=== PATIENT | female | born 1970 | race African-American/Black ===

== ENCOUNTER 2016-09-25 03:55 | Observation (INO) | payer OTHER ==
--- NOTE | ~2016-09-25 | CR72 ---
[facility] A Service of [facility] RADIOLOGY TEXT RESULTS PATIENT: BRIDGET BURGOS LOCATION: [facility] : 72 UNIT #: [id number] AGE: [address]: Rajan Jon MD SEX: F ORDER DR: [id number] [place], [place] [address] [id number] I MR#: [id number] Acc #: [id number] NAME: BRIDGET BURGOS : 1970 SEX: F STUDY DATE/TIME: 09/25/2016 4:23 UNIT: [facility] ROOM: [facility] STUDY DESCRIPTION: CR Chest Single View Portable Attending Physician: Rajan Jon Ordering Physician: Lucas Jon M.D. Primary Care Physician: Primary Care Physician No MEDICAL IMAGING REPORT This report is preliminary unless electronic signature is present EXAM Portable AP view of the chest COMPARISON PA and lateral chest dated March 21, 2016 INDICATIONS 46-year-old female with chest tightness and pain tonight, worse with movement. History of hypertension and diabetes. FINDINGS No evidence of pneumothorax or pleural effusion. Cardiomediastinal silhouette within normal limits. There is poor inspiratory effort and there is likely resultant bronchovascular crowding. Interstitial markings do not appear appreciably changed from February 2016. IMPRESSION No acute radiographic abnormality. Low lung volumes with bronchovascular crowding. Dictated by... Trey Wheatley M.D. THIS IS AN ELECTRONICALLY VERIFIED REPORT Trey Wheatley M.D. at 09/28/2016 9:32 PM TOMMY/blayne TD: 09/25/2016 10:03 JOB #: [id number] [facility] A Service of [facility] RADIOLOGY TEXT RESULTS PATIENT: BRIDGET BURGOS LOCATION: [facility] : 72 UNIT #: [id number] AGE: [address]: Rajan Jon MD SEX: F ORDER DR: MEDICAL IMAGING REPORT COPY
--- NOTE | ~2016-09-25 | HP ---
Unit #: [id number] #: [id number] Patient: BRIDGET BURGOS [id number] [facility]. [place], [place] [address] [id number] I MR#: [id number] NAME: BRIDGET BURGOS ROOM: 568 Age: 46 Sex: F Admission Date: 09/25/2016 : 1970 Attending Physician: Lucas Jon M.D. HISTORY AND PHYSICAL REASON FOR ADMISSION Chest pain. HISTORY OF PRESENT ILLNESS The patient is a 46-year-old female who presented to [facility] ED on September 25, 2016, at roughly 3 a.m., with complaints of chest pain. Patient states that she got home from work the evening prior at roughly 11 p.m. She has had a very stressful work environment recently and has been having some difficulties with her coworkers. The patient states that she went to bed and was awoken by chest tightness to the mid chest that radiated to her jaw, as well as her arm, and had some associated sweating, dizziness, and palpitations. Patient states that she has been having these symptoms off and on for about the last week. She did go to her PCP who increased her Zoloft, who felt that it was more anxiety related. However, patient states that the episode she had early this morning was worse than any other episode she had which is why she presented to the [facility] ED. Patient has a history of GERD, anxiety, depression, diabetes that was diagnosed in February of this past year, and hypertension that was diagnosed last week and currently not taking any meds. Patient states that she has had panic attacks before and is fairly familiar with how those feel, and she states that the pain she experienced last evening is not anything like any panic attack that she has ever had. She also describes a lot of sharp, shooting pains in her feet but denies any nausea, vomiting, or syncope, and no shortness of breath or worsening of chest pain with exertion or with walking. However, she does not worsening of chest pain with lifting or bending over to pick something up at work. Patient has never had a stress test, never had a cardiac cath, and never had sleep apnea workup. PAST MEDICAL HISTORY 1. Gastroesophageal reflux disease. 2. Anxiety and depression. 3. Diabetes diagnosed in February 2016. 4. Hypertension diagnosed last week but not currently on any medication. PAST SURGICAL HISTORY 1. Tubal. 2. section. SOCIAL HISTORY Patient has three children. The youngest one is age 21. 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 Patient has smoked one pack per day since 1998; however, she has cut back to where one pack will last her one to two days now. Patient states that she also uses marijuana occasionally, roughly one to two times per week. She denies any alcohol abuse or any other illicit drug use. It is of note that patient states that she recently lost her roughly February of last year where he was just found in their home, and patient has had a hard time in coping with that as well. Patient does states that she exercises regularly where she walks in [employer]. The last time that she did walk was approximately two weeks ago, but normally when she does this activity she does not have any shortness of breath or chest pain. FAMILY HISTORY Mom is living at age 65. She has CHF. Dad is living at age 62-63 with no known heart disease. Patient does have a family history positive for hypertension. ALLERGIES PENICILLIN. HOME MEDICATIONS 1. Hydroxyzine 2 caps p.o. every 6 hours as needed for anxiety. 2. Glucophage 500 mg p.o. daily. 3. Naproxen 500 mg p.o. twice daily. 4. Zantac 150 mg p.o. at bedtime. 5. Prilosec 40 mg p.o. daily. 6. Zoloft 200 mg p.o. daily. REVIEW OF SYSTEMS See History of Present Illness. PHYSICAL EXAMINATION GENERAL: This is a 46-year-old female who is alert, oriented x3, and in no apparent distress. VITAL SIGNS: Blood pressure 109/59, temperature 97.6, respirations 18, and pulse 67. HEART: S1 and S2. No S3 or S4. No clicks, no rubs, no murmurs. LUNGS: Clear. ABDOMEN: Obese. No masses, no tenderness. Positive bowel sounds. EXTREMITIES: No swelling. NEUROLOGICAL: No neuro deficits noted. DIAGNOSTIC STUDIES LABORATORY: Troponin of less than 0.05 and less than 0.05. White count is 10, hemoglobin 12, hematocrit 37.4, and platelets 261,000. Sodium 135, potassium 3.6, chloride 108, CO2 of 26, BUN 12, creatinine 0.7, and glucose 165. IMAGING: Chest x-ray shows pulmonary edema with low lung volumes. CARDIOLOGY: EKG shows normal sinus rhythm with no ischemic changes. IMPRESSION 1. Acute diastolic heart failure. 2. Possible coronary artery disease. 3. Rule out hypertensive heart disease. 4. Diabetes. 5. High blood pressure. Unit #: [id number] #: [id number] Patient: BRIDGET BURGOS 6. Hyperlipidemia. 7. Obesity. PLAN Will add lipid panel and A1c to the labs drawn from today. Will decrease patient's nitroglycerin paste dose to a half an inch twice a day. Will start patient on Coreg twice daily, as well as IV diuretics for diastolic heart failure and fluid overload. Will start patient on therapeutic Lovenox dose, as well as an aspirin, Lipitor, and lisinopril. Will start patient on fluid restriction of 2000 mL per day. Due to patient's new-onset diastolic heart failure, will plan for cardiac cath on Sunday. The cath was discussed with the patient, and patient is agreeable to proceed. Will check cardiac enzymes, as well as EKG in the morning. Further recommendations and workup pending cardiac cath results. Will also check 2D echo to evaluate LV function and any valvular abnormality. Dictated by Montse Zapata APRN for Albaro Rivera/judith TD: 09/25/2016 22:16 JOB #: [id number] HISTORY AND PHYSICAL X X HISTORY AND PHYSICAL
--- NOTE | ~2016-09-25 | EKG ---
PATIENT: BRIDGET BURGOS UNIT #: [id number] Ventricular Rate: 71 BPM Atrial Rate: 71 BPM P-R Interval: 150 ms QRS Duration: 76 ms Q-T Interval: 428 ms QTC Calculation(Bezet): 465 ms P [place]: 29 degrees Calculated R [place]: 6 degrees Calculated T [place]: 13 degrees Diagnosis Line: Normal sinus rhythm Diagnosis Line: Minimal voltage criteria for LVH, may be normal Diagnosis Line: variant Diagnosis Line: Borderline ECG Diagnosis Line: When compared with ECG of 25-SEP-2016 03:35, Diagnosis Line: (unconfirmed) Diagnosis Line: No significant change was found Diagnosis Line: Confirmed by MARIAH CEDILLO MD ([id number]) on Diagnosis Line: 09/26/2016 12:10:18 PM INTERPRETING MD: CALVIN
--- NOTE | ~2016-09-25 | DS ---
Unit #: [id number] #: [id number] Patient: BRIDGET BURGOS [id number] [place], [place] [address] [id number] I MR#: [id number] NAME: BRIDGET BURGOS ROOM: 568 Age: 46 Sex: F Admission Date: 09/25/2016 : 1970 Discharge Date: 09/27/2016 Attending Physician: Lucas Jon M.D. Primary Care Physician: No Primary Care Physician DISCHARGE SUMMARY DISCHARGE DIAGNOSES 1. Acute diastolic heart failure. 2. Status post cardiac catheterization 09/27/[address] Durán at [facility] that revealed angiographically normal coronaries. Ejection fraction of 60% with no segmental wall hypokinesis. 3. Two-dimensional echocardiogram 09/25/2016 shows an ejection fraction equal to 60% with mild concentric left ventricular hypertrophy. Mildly dilated left and right atrium. Mildly dilated right ventricle. Mild mitral regurgitation and mild tricuspid regurgitation. Right ventricular systolic pressure 27 mmHg. 4. Hypertensive heart disease. 5. Hyperlipidemia. 6. Diabetes mellitus type 2. 7. Obesity. DISCHARGE MEDICATIONS 1. Ranitidine 150 mg at nighttime. 2. Aspirin 81 mg daily. 3. Naproxen 500 mg b.i.d. 4. Prilosec 40 mg daily. 5. Acetaminophen 650 mg q.6 h. p.r.n. 6. Zoloft 200 mg daily. 7. Glucophage 500 mg daily. 8. Hydroxyzine 2 caps q.6 h. p.r.n. 9. Carvedilol 3.125 mg b.i.d. 10. Furosemide 40 mg daily. 11. Lipitor 20 mg at nighttime. 12. Lisinopril 10 mg at nighttime. HOSPITAL COURSE This is a 46-year-old female who presented to the emergency room for evaluation of chest pain that radiated to her mid chest and jaw and to her arm. She had associated dizziness, palpitations and diaphoresis. She was ruled out for an acute myocardial infarction with negative cardiac enzymes and troponin. Two-dimensional echocardiogram was obtained, which found the patient to have normal left ventricular systolic function. It was felt the patient was fluid overloaded and had acute onset of diastolic heart failure with preserved ejection fraction of 60% per echocardiogram. She was started on IV diuretics, placed on beta ava, MILLIE inhibitor and statin. Fluid restriction also ensued. Cardiac catheterization was recommended for the patient, to which she agreed. The following day her heart failure had improved. Her blood pressure was stable. She was taken to the cardiac catheterization, where Unit #: [id number] #: [id number] Patient: BRIDGET BURGOS she was found to have angiographically normal coronaries with normal left ventricular systolic function. Her right radial site was healing well without hematoma bruising. Blood pressure was stable. She was stable for discharge today. PHYSICAL EXAMINATION VITALS: Blood pressure 128/60, heart rate 60, temperature 98.4. CHEST: Clear to auscultation. HEART: S1 and S2. Regular rate and rhythm. ABDOMEN: Soft with bowel sounds present. EXTREMITIES: Without leg edema. DIAGNOSTIC DATA LABORATORY: Glucose 102, BUN 15, creatinine 0.8, sodium 139, potassium 4.1, cholesterol 248, triglycerides 127, LDL 146, HDL 69. White blood cell count 7.0, hemoglobin 11.1, hematocrit 35.4, platelets 256. CARDIOVASCULAR: Electrocardiogram normal sinus rhythm with a rate of 62 beats per minute with left ventricular hypertrophy. DISCHARGE INSTRUCTIONS 1. The patient will be discharged home today. 2. Follow up with Dr. Durán on 12/01/2016 at 2:30 p.m. 3. 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 No lifting over 5 pounds until 10/04/2016. 4. The patient has been discharged home on beta ava, MILLIE inhibitor, diuretic, aspirin and statin. Prescriptions have been written for all of the above. Dictated by... Umang Back A.P.R.N. for Albaro Rivera/conrado TD: 11/24/2016 09:04 JOB #: [id number] CC: [facility] DISCHARGE SUMMARY Page 1 of 1 X Umang Back APRN X DISCHARGE SUMMARY
--- NOTE | ~2016-09-25 | EKG ---
PATIENT: BRIDGET BURGOS UNIT #: [id number] Ventricular Rate: 62 BPM Atrial Rate: 62 BPM P-R Interval: 154 ms QRS Duration: 80 ms Q-T Interval: 446 ms QTC Calculation(Bezet): 452 ms P [place]: 39 degrees Calculated R [place]: 0 degrees Calculated T [place]: -2 degrees Diagnosis Line: Normal sinus rhythm Diagnosis Line: Moderate voltage criteria for LVH, may be normal Diagnosis Line: variant Diagnosis Line: Borderline ECG Diagnosis Line: When compared with ECG of 26-SEP-2016 08:56, Diagnosis Line: No significant change was found Diagnosis Line: Confirmed by ROBERTA KERR MD ([id number]) on 09/27/2016 Diagnosis Line: 7:37:50 PM INTERPRETING MD: CIRILO NICK
--- NOTE | ~2016-09-25 | EKG ---
PATIENT: BRIDGET BURGOS UNIT #: [id number] Ventricular Rate: 82 BPM Atrial Rate: 82 BPM P-R Interval: 160 ms QRS Duration: 80 ms Q-T Interval: 420 ms QTC Calculation(Bezet): 490 ms P [place]: 44 degrees Calculated R [place]: -6 degrees Calculated T [place]: 18 degrees Diagnosis Line: Normal sinus rhythm Diagnosis Line: Minimal voltage criteria for LVH, may be normal Diagnosis Line: variant Diagnosis Line: Prolonged QT Diagnosis Line: Abnormal ECG Diagnosis Line: When compared with ECG of 25-SEP-2016 03:32, Diagnosis Line: (unconfirmed) Diagnosis Line: No significant change was found Diagnosis Line: Confirmed by MARIAH CEDILLO MD ([id number]) on Diagnosis Line: 09/26/2016 11:44:50 AM INTERPRETING MD: CALVIN
[~2016-09-25 03:55] MED LIST: ASPIRINEC PO; GLUCOPHAGE500 M1 PO; HYDROXYZINE PAM25 MG PO; NAPROXEN500 M1 PO; PHENERGAN PO; PREVACID PO; PRILOSEC PO; RANITIDINE HCL150 M1 PO; SERTRALINE HCL100 MG PO; TOPAMAX PO
[2016-09-25 04:20] LABS: BASOPHIL# 0.1 X10e3 (0-0.3); BASOPHIL% 0.5 % (0-2.5); EOSINOPHIL# 0.1 X10e3 (0-0.7); EOSINOPHIL% 1.4 % (0.0-7.0); HEMATOCRIT 37.4 % (35.0-45.0); LYMPHOCYTE# 2.8 X10e3 (1.0-3.5); MEAN CELL VOLUME 78.6 FL (83-96); MEAN CORPUSCULAR HEMOGLOBIN 25.1 PG (28-34); MEAN PLATELET VOLUME 8.5 FL (6.5-11.5); MONOCYTE# 0.9 X10e3 (0-1.0); MONOCYTE% 8.6 % (3.0-12.0); NEUTROPHIL# 6.1 X10e3 (1.5-7.1); NEUTROPHIL% 61.5 % (40-75); PLATELET COUNT 261 X10e3 (140-420); RED BLOOD COUNT 4.76 X10e (3.90-5.30); RED CELL DISTRIBUTION WIDTH 17.3 % (11.0-15.5)
[2016-09-25 04:24] LABS: POC - CKMB 2.2 ng/mL (0.0-7.9); POC - TROPONIN <0.05 ng/mL (<=0.05)
[2016-09-25 04:25] LABS: DIFF IND NO
[2016-09-25 04:35] LABS: PARTIAL THROMBOPLASTIN TIME 26.4 SECONDS (23.5-31.3); PROTHROMBIN TIME (PATIENT) 10.9 SECONDS (9.6-11.5)
[2016-09-25 04:44] LABS: BLOOD UREA NITROGEN 12 mg/dL (9-23); BUN/CREATININE RATIO 17.14; CALCIUM SERUM 8.6 mg/dL (8.4-10.2); CARBON DIOXIDE 26 mmol/L (22-31); CHLORIDE 108 mmol/L (100-111); CREATININE SERUM 0.7 mg/dL (0.6-1.4); GLOM FILT RATE Estimated ABOVE60 mL/min (>60); GLUCOSE FASTING 165 mg/dL (70-110); POTASSIUM 3.6 mmol/L (3.5-5.1); SODIUM 135 mmol/L (135-145)
[2016-09-25 06:09] LABS: POC - CKMB 1.6 ng/mL (0.0-7.9); POC - TROPONIN <0.05 ng/mL (<=0.05)
[2016-09-25 13:45] LABS: MB 2.3 ng/ml
[2016-09-25 17:08] LABS: CHOLESTEROL 240 mg/dL (0-200); HDL CHOLESTEROL 69 mg/dL (35-95); LDL/HDL RATIO 2 RATIO (0-4); TRIGLYCERIDES 127 mg/dL (10-160)
[2016-09-25 17:09] LABS: LDL CHOLESTEROL 146 mg/dL (-130)
[2016-09-25 19:58] LABS: %MB 2.2 % (0.0-4.0); MB 2.3 ng/ml
[2016-09-26 09:48] LABS: %MB 2.1 % (0.0-4.0); MB 1.5 ng/ml
[2016-09-27 07:24] LABS: PROTHROMBIN TIME (PATIENT) 10.1 SECONDS (9.6-11.5)
[2016-09-27 07:38] LABS: BLOOD UREA NITROGEN 15 mg/dL (9-23); BUN/CREATININE RATIO 18.75; CALCIUM SERUM 8.6 mg/dL (8.4-10.2); CARBON DIOXIDE 26 mmol/L (22-31); CHLORIDE 107 mmol/L (100-111); CREATININE SERUM 0.8 mg/dL (0.6-1.4); GLOM FILT RATE Estimated ABOVE60 mL/min (>60); GLUCOSE FASTING 102 mg/dL (70-110); MAGNESIUM 2.1 mg/dL (1.6-3.0); POTASSIUM 4.1 mmol/L (3.5-5.1); SODIUM 139 mmol/L (135-145)
[2016-09-27 08:55] LABS: HEMATOCRIT 35.4 % (35.0-45.0); HEMOGLOBIN 11.1 gm/dL (12.0-16.0); MEAN CELL VOLUME 78.7 FL (83-96); MEAN CORPUSCULAR HEMOGLOBIN 24.6 PG (28-34); MEAN CORPUSCULAR HGB CONC 31.2 g/dL (30-36); MEAN PLATELET VOLUME 8.5 FL (6.5-11.5); RED BLOOD COUNT 4.5 X10e (3.90-5.30); RED CELL DISTRIBUTION WIDTH 17.5 % (11.0-15.5)
[2016-09-27] MEDS ORDERED: LASIX PO (14:15)
[2016-09-27] MEDS ORDERED: COREG3.125 MG PO (14:15)
[2016-09-27] MEDS ORDERED: LISINOPRIL10 MG PO (14:16)
[2016-09-27] MEDS ORDERED: LIPITOR20 MG PO (14:16)
[2016-09-27] MEDS ORDERED: BAYER CHEWABLE81 MG PO (14:39)
[2016-09-27] MEDS ORDERED: ACETAMINOPHEN650 M4 PO (14:39)
== END 2016-09-27 16:25 | disposition home or self-care (01) ==
LOC: CED 03:55 → CEDOF 06:25 → C5C 09:08
PROVIDERS: Emergency Medicine; Internal Medicine Cardiovascular Disease
DX: I11.0 Hypertensive heart disease with heart failure (principal); I50.31 Acute diastolic (congestive) heart failure; E11.9 Type 2 diabetes mellitus without complications; Z79.84 Long term (current) use of oral hypoglycemic drugs; E78.5 Hyperlipidemia, unspecified; E66.9 Obesity, unspecified; K21.9 Gastro-esophageal reflux disease without esophagitis; Z88.0 Allergy status to penicillin; Z82.49 Family history of ischemic heart disease and other diseases of the circulatory system
CPT/HCPCS: 36415; 71010; 80048; 80061; 82550; 82553; 82947; 83036; 83735; 84484; 85025; 85027; 85610; 85730; 93005; 93306; 96372; 99285; C1769; C1887; C1894; G0378; J1644; J1650; J1940; J2250; J3010

== ENCOUNTER 2016-12-26 13:52 | Emergency (ER) | payer OTHER ==
--- NOTE | ~2016-12-26 | EKG ---
PATIENT: BRIDGET BURGOS UNIT #: [id number] Ventricular Rate: 73 BPM Atrial Rate: 73 BPM P-R Interval: 156 ms QRS Duration: 86 ms Q-T Interval: 412 ms QTC Calculation(Bezet): 453 ms P [place]: 43 degrees Calculated R [place]: 3 degrees Calculated T [place]: 15 degrees Diagnosis Line: Normal sinus rhythm Diagnosis Line: Minimal voltage criteria for LVH, may be normal Diagnosis Line: variant Diagnosis Line: Borderline ECG Diagnosis Line: When compared with ECG of 27-SEP-2016 05:46, Diagnosis Line: No significant change was found Diagnosis Line: Confirmed by MAKI STORM MD ([id number]) on Diagnosis Line: 12/26/2016 3:51:49 PM INTERPRETING MD: DOTTY NICK
[~2016-12-26 13:52] MED LIST changes: +ACETAMINOPHEN650 M4 PO; +BAYER CHEWABLE81 MG PO; +COREG3.125 MG PO; +LASIX PO; +LIPITOR20 MG PO; +LISINOPRIL10 MG PO
[2016-12-26 14:15] LABS: BASOPHIL% 0.7 % (0-2.5); EOSINOPHIL# 0.1 X10e3 (0-0.7); EOSINOPHIL% 2.8 % (0.0-7.0); HEMOGLOBIN 12.2 gm/dL (12.0-16.0); LYMPHOCYTE# 1.8 X10e3 (1.0-3.5); LYMPHOCYTE% 33.8 % (17.0-45.0); MEAN CELL VOLUME 77.8 FL (83-96); MEAN CORPUSCULAR HEMOGLOBIN 24.2 PG (28-34); MEAN CORPUSCULAR HGB CONC 31.1 g/dL (30-36); MEAN PLATELET VOLUME 8.8 FL (6.5-11.5); MONOCYTE# 0.5 X10e3 (0-1.0); MONOCYTE% 9.9 % (3.0-12.0); NEUTROPHIL# 2.8 X10e3 (1.5-7.1); NEUTROPHIL% 52.8 % (40-75); PLATELET COUNT 227 X10e3 (140-420); RED BLOOD COUNT 5.02 X10e (3.90-5.30); RED CELL DISTRIBUTION WIDTH 18.8 % (11.0-15.5); WHITE BLOOD COUNT 5.3 X10e3 (4.0-10.5)
[2016-12-26 14:17] LABS: DIFF IND NO
[2016-12-26 14:49] LABS: BILIRUBIN, DIRECT 0.1 mg/dL (0.0-0.2); BILIRUBIN,INDIRECT 0.2 mg/dL (0.0-0.9); BILIRUBIN,TOTAL 0.3 mg/dL (0.2-2.0); CALCIUM SERUM 8.9 mg/dL (8.4-10.2); CREATININE SERUM 0.6 mg/dL (0.6-1.4); GLOM FILT RATE Estimated 127.6 mL/min (>60); PROTEIN TOTAL SERUM 7.5 g/dL (6.0-8.3)
[2016-12-26 15:01] LABS: POC - CKMB <1.0 ng/mL (0.0-7.9); POC - TROPONIN <0.05 ng/mL (<=0.05)
== END 2016-12-26 15:54 | disposition home or self-care (01) ==
LOC: CED 13:52
DX: S46.912A Strain of unspecified muscle, fascia and tendon at shoulder and upper arm level, left arm, initial encounter (principal); R07.89 Other chest pain; K21.9 Gastro-esophageal reflux disease without esophagitis; I10 Essential (primary) hypertension; E11.9 Type 2 diabetes mellitus without complications; F17.200 Nicotine dependence, unspecified, uncomplicated; Z88.1 Allergy status to other antibiotic agents; Z79.899 Other long term (current) drug therapy; X58.XXXA Exposure to other specified factors, initial encounter; Y92.9 Unspecified place or not applicable
CPT/HCPCS: 36415; 80048; 80076; 82553; 84484; 85025; 93005; 99284